=== PATIENT | male | born 1940 | race Caucasian/White ===

== ENCOUNTER → 2018-11-07 | Outpatient (CLI) | payer OTHER ==
--- NOTE | 2018-11-07 17:52 | US ---
EXAMINATION TYPE: US carotid duplex BILAT DATE OF EXAM: 11/07/2018 COMPARISON: NONE CLINICAL HISTORY: I65.29 Occlusion and stenosis of unspecified carot. EXAM MEASUREMENTS: RIGHT: Peak Systolic Velocity (PSV) cm/sec ----- Right CCA: 78.6 ----- Right ICA: 85.7 ----- Right ECA: 78.1 ICA/CCA ratio: 1.1 RIGHT: End Diastole cm/sec ----- Right CCA: 17.1 ----- Right ICA: 24.4 ----- Right ECA: 18.3 LEFT: Peak Systolic Velocity (PSV) cm/sec ----- Left CCA: 94.4 ----- Left ICA: 101.7 ----- Left ECA: 75.3 ICA/CCA ratio: 1.1 LEFT: End Diastole cm/sec ----- Left CCA: 31.0 ----- Left ICA: 27.5 ----- Left ECA: 0.0 VERTEBRALS (direction of flow): Right Vertebral: Antegrade Left Vertebral: Antegrade Rhythm: Normal Limited visualization of right ICA due to its deep position in neck Bilateral intimal thickening, plaque bilateral CCA, bulb and ICA, no elevated velocities, no signific ant stenosis. IMPRESSION: There is variable plaque formation. There is antegrade flow in the vertebral arteries. T he images and measurements suggest 30-40% stenosis in both internal carotid arteries. Criteria for Assigning % of Stenosis / Diameter reduction (Estimation based on the indirect measurements of the internal carotid artery velocities (ICA PSV). 1. Normal (no stenosis)=ICA PSV < 125 cm/s: ratio < 2.0: ICA EDV<40 cm/s. 2. Less than 50% stenosis=ICA PSV < 125 cm/s: ratio < 2.0: ICA EDV<40 cm/s. 3. 50 to 69% stenosis=ICA PSV of 125 to 230 cm/s: ration 2.0 ? 4.0: ICA EDV 40-100 cm/s. 4. Greater than 70% stenosis to near occlusion= ICA PSV > 230 cm/s: ratio > 4.0: ICA EDV > 100 cm/s. 5. Near occlusion= ICA PSV velocities may be low or undetectable: variable ratio and ICA EDV. 6. Total occlusion=unable to detect flow.
== END | disposition home or self-care (01) ==
LOC: RADUSWWP 16:54
DX: I65.23 Occlusion and stenosis of bilateral carotid arteries (principal)
CPT/HCPCS: 93880

== ENCOUNTER → 2018-11-26 | Outpatient (CLI) | payer OTHER ==
--- NOTE | 2018-11-26 10:51 | CT ---
EXAMINATION TYPE: CT chest wo con DATE OF EXAM: 11/26/2018 COMPARISON: No prior available at this institution for comparison of the stated pulmonary nodule. HISTORY: Prior abn exam, nodule CT DLP: 533 mGycm. Automated Exposure Control for Dose Reduction was Utilized. TECHNIQUE: CT scan of the thorax is performed without IV contrast. FINDINGS: LUNGS: There is an 8 mm right apical pulmonary nodule with spiculated margins contiguous with the rig ht posterior lateral apical pleural thickening. This could relate to fibrosis or neoplastic pulmonary nodule as there is bilateral nodular apical pleural thickening with underlying moderate centrilobula r emphysematous change. Linear bibasilar pleural parenchymal scarring is noted. No focal consolidation, pleural effusion or p neumothorax. MEDIASTINUM: Lack of IV contrast is noted to limit evaluation for mediastinal and especially hilar ad enopathy. There are no definitive greater than 1 cm hilar or mediastinal lymph nodes. No cardiomega ly or pericardial effusion is seen. Severe coronary artery calcifications are present. Ascending thor acic aorta is within normal limits of size measuring 3.7 cm. OTHER: There is partial visualization of an infrarenal abdominal aortic aneurysm measuring at least 5 .0 x 4.0 cm on the last image (image 78 of series 3). Moderate atherosclerosis of the abdominal aorta and its branches is seen. Cholelithiasis is present. Probable gastric fundal diverticulum versus less likely adrenal gland lesion is seen on image 66. The re is minimal retroareolar bilateral gynecomastia. Moderate multilevel degenerative changes of the spine are noted. IMPRESSION: 1. 8mm right apical pulmonary nodule that could represent nodular scarring/fibrosis or neoplastic pul monary nodule. PET CT is recommended for further evaluation. Comparison with outside imaging could be performed to assess for interval growth or stability as the patient states there is a known pulmonar y nodule. Addendum could be performed if outside imaging is made available for comparison. 2. Partial visualization of an abdominal aortic aneurysm measuring at least 5.0 cm. CTA abdomen pelvi s is recommended for further evaluation. 3. Severe three-vessel coronary calcifications, marker of coronary artery disease. 4. Probable gastric fundal diverticulum versus less likely adrenal gland lesion as this abuts the adr enal gland. This could also be assessed on the above recommended CT abdomen pelvis. 5. Cholelithiasis.
== END | disposition home or self-care (01) ==
LOC: RADCTMAIN 10:04
PROVIDERS: ATTEND Physician Assistant
DX: R91.1 Solitary pulmonary nodule (principal); I25.10 Atherosclerotic heart disease of native coronary artery without angina pectoris
CPT/HCPCS: 71250

== ENCOUNTER → 2019-01-03 | Outpatient (CLI) | payer OTHER ==
--- NOTE | 2019-01-05 21:32 | PE ---
EXAMINATION TYPE: PET CT fusion skull to thigh DATE OF EXAM: 01/03/2019 COMPARISON: CT chest 11/26/2018 Prior PET/CT: None HISTORY: Solitary pulmonary nodule TECHNIQUE: Following the intravenous administration of 9.8 mCi of F-18 FDG, whole body images are pe rformed from the skull base to the midthigh. Images are reviewed on the computer in the coronal, axi al, and sagittal planes. Reconstructed rotating images are created on independent workstation and re viewed on the computer. A localization and attenuation correction CT is performed in conjunction wi th the PET scan. DLP: 306.45 mGycm SCAN: Initial Blood glucose: 94 mg/dL Average Mediastinum SUV: 1.2 Average Liver SUV: 1.95 FINDINGS: NECK: There is increased uptake in the region of the vocal cords may be related to phonation during injection. THORAX: There may be some mild inflammatory type change within the mid to distal esophagus. Consider evaluation with EGD. Some mild increased signals in the right suprahilar region with an SUV value 1.75. Right apical thickening has normal radiotracer appearance with an SUV value 0.94. ABDOMEN: No abnormal uptake PELVIS: No abnormal uptake OSSEOUS STRUCTURES: No abnormal uptake LOCALIZATION CT: Some scarring appears to be at the right apex. Some thickening measures up to 0.9 cm in the lateral right apex. Coronary artery calcification is present. The ascending thoracic aorta a t the level of main pulmonary artery is 3.8 cm. The main pulmonary artery the bifurcation is 2.4 cm. There is an abdominal aortic aneurysm tortuous aorta. This is a transverse dimension of 4.6 cm. Great est AP dimension appears to be 5.0 cm. This terminates at the bifurcation. COMPARISON: No suspicious interval change IMPRESSION: 1. No suspicious uptake within the chest. 2. Intermediate signal within the right suprahilar region may be related to some inflammatory change. Monitoring is recommended. 3. There is diffuse increased uptake within the mid to distal esophagus. This could be inflammatory i n nature. Consider EGD for additional evaluation. 4. Abdominal aortic aneurysm measuring 4.6 x 5.0 cm
== END ==
LOC: RADPETMAIN 11:19
PROVIDERS: ATTEND Physician Assistant
DX: R91.1 Solitary pulmonary nodule (principal); I71.4 Abdominal aortic aneurysm, without rupture
CPT/HCPCS: 78815; A9552

== ENCOUNTER 2019-03-05 08:29 | Day surgery (SDC) | payer OTHER ==
[2019-03-02 13:48] VITALS: BMI 19.8
[~2019-03-05 08:29] MED LIST: LACTATED RINGERS 1,000 ML IV SCH; LIDOCAINE 1% 20 ML VIAL (10MG/ML) FOR IV START INTRADERMA PRN; MIDAZOLAM (PF) 2 MG/2 ML VIAL IV PRN
[2019-03-05 08:48] VITALS: RESP 18; TEMP 98.8
[2019-03-05] MEDS ORDERED: PROPOFOL 10 MG/ML 20 ML VIAL IV ONE (09:35)
[2019-03-05] MEDS ORDERED: LIDOCAINE 1% INJ 10MG/ML (20 ML MDV) ONE (09:35)
--- NOTE | 2019-03-05 10:19 | P.PCN ---
Date of Procedure: 03/05/19 Procedure(s) Performed: Procedure: Esophagogastroduodenoscopy and biopsy. Preoperative diagnosis: Dysphagia and weight loss and abnormal CT/PET scan. Postoperative diagnosis: 1. Small sliding hiatal hernia with no definite esophagitis or complicated reflux disease. 2. Mild antral gastritis. 3. Multiple biopsies obtained from the duodenum, antrum and esophagus. Preparation sedation: Was provided by anesthesia. Brief clinical history: The patient is a 78-year-old male who was evaluated in the office last month because of dysphagia. He lost 30 pounds over [address] of the abdomen and subsequent PET scan performed showed increased uptake in the esophagus. Procedure: With the patient on his left lateral decubitus position and after informed consent and adequate sedation, I passed the Olympus-GIF H 190 video upper endoscope through the cricopharyngeus down the esophagus. There was no definite changes in the esophagus to suggest infectious or inflammatory conditions or any neoplasia or strictures. GE junction was around 42-43 cm from the incisors and there was a small, less than 2 cm, sliding hiatal hernia. No Munoz's esophagus. The endoscope was then passed into the stomach which was insufflated with air and inspected in detail including the retroflex view in the cardia. There was some mottling and erythema in the antrum but no ulcers or erosions pyloric channel. Duodenal bulb, post bulbar area and descending duodenum appeared essentially within normal limits. I obtained biopsies from the duodenum, antrum and esophagus then the endoscope was withdrawn. The patient tolerated the procedure well. Plan: The patient was reassured. Will await biopsy results. I like to see him in the office in follow-up in couple weeks to discuss his course and biopsy results and make further recommendations. I will keep you updated on his progress.
[2019-03-05 10:31] VITALS: BP 162/90; PULSE 92
== END 2019-03-05 10:43 | disposition home or self-care (01) ==
LOC: ORWHC2ENDO 08:29
DX: K20.9 Esophagitis, unspecified (principal); K29.70 Gastritis, unspecified, without bleeding; K44.9 Diaphragmatic hernia without obstruction or gangrene; I10 Essential (primary) hypertension; R63.4 Abnormal weight loss; Z68.1 Body mass index [BMI] 19.9 or less, adult; I73.9 Peripheral vascular disease, unspecified; F17.210 Nicotine dependence, cigarettes, uncomplicated; Z79.82 Long term (current) use of aspirin; Z79.899 Other long term (current) drug therapy
CPT/HCPCS: 88305; 43239; J2001; J2704

== ENCOUNTER → 2019-04-30 | Outpatient (CLI) | payer OTHER ==
--- NOTE | 2019-04-30 15:46 | CT ---
EXAMINATION TYPE: CT chest wo con DATE OF EXAM: 04/30/2019 COMPARISON: 11/26/2018 HISTORY: Follow up prior CT. 30 lb weight loss over past [address] DLP: 413 mGycm, Automated exposure control for dose reduction was used. CONTRAST: Performed injected with 0 mL of Isovue 300. TECHNIQUE: Axial images were obtained at 5 mm thick sections. Reconstructed images are reviewed on [employer] computer in the coronal plane. FINDINGS: Portion of the thyroid visualized is normal. Within the posterior lateral right apex is a 0.9 cm density with some stranding towards the right ape x posterolaterally. This was present previously and stable. Continued monitoring is recommended with a follow-up exam in 3 months. Some apical scarring may be present. No enlarged mediastinal or hilar adenopathy is evident. The ascending aorta diameter at the level o f the main pulmonary artery is 3.6 cm. The main pulmonary artery diameter at the bifurcation is 2.2 cm. Coronary artery calcification is present. Limited CT sections are obtained through the upper abdomen. The aorta appears tortuous and extends ou t of the [id number]. Previous PET CT identified a 4.6 cm aneurysm, continued monitoring is recomme nded. IMPRESSIONS: 1. Stable appearance of a density within the posterior lateral right apex. Continued monitoring with a follow-up CT chest in 3 months is recommended. 2. Tortuosity noted on the aorta on the current examination present on a PET CT of 01/03/2019. Monitori ng the previously identified aneurysm should be performed.
== END | disposition home or self-care (01) ==
LOC: RADCTMAIN 11:33
PROVIDERS: ATTEND Family Medicine
DX: I77.1 Stricture of artery (principal); R93.89 Abnormal findings on diagnostic imaging of other specified body structures
CPT/HCPCS: 71250